=== PATIENT | male | born 1980 ===

== ENCOUNTER → 2018-01-18 02:03 | Emergency (ER) | payer SELFPAY | END | disposition left against medical advice (07) | LOC: ED 02:03 | DX: S61.412A Laceration without foreign body of left hand, initial encounter (principal); Z53.21 Procedure and treatment not carried out due to patient leaving prior to being seen by health care provider; X58.XXXA Exposure to other specified factors, initial encounter; Y93.89 Activity, other specified; Y92.89 Other specified places as the place of occurrence of the external cause; Y99.8 Other external cause status ==